=== PATIENT | female | born 1940 | race Caucasian/White ===

== ENCOUNTER 2017-05-05 08:30 | Emergency (ER) | payer MEDICARE, BC ==
[2017-05-05 08:59] LABS: URINE MUCUS NONE SEEN (Up to 25%)
--- NOTE | 2017-05-05 09:03 | ER PHYSICIAN DOCUMENTATION ---
Physician Documentation [facility] Name:Erica Sesay Age:76 yrs Sex:Female :1940 Arrival Date:05/05/2017 Time:08:30 Bed1 Private MD: David Denny Disposition: 05/05/17 08:54 Discharged to Home/Self Care. Impression: Bladder Infection (UTI). - Condition is Good. - Discharge Instructions: BLADDER INFECTION, Female (Adult). - Prescriptions for Macrobid 100 mg Oral Capsule - take 100 milligram by ORAL route every 12 hours for 14 days; 28 capsule. - Medical Reconciliation form form. - Follow up: Private Physician; When: 10 - 14 days; Reason: Recheck today's complaints, Continuance of care. - Problem is new. - Symptoms are unchanged. HPI: 05/05 08:59 This 76 yrs old Female presents to ER via Private Vehicle with complaints of be Urinary Frequency. 08:59 The patient presents with pelvic pain, that is located in/on the pelvis, urinary be symptoms, frequency, urgency, foul smelling urine. Onset: The symptoms/episode began/occurred yesterday, and became persistent today. Severity of symptoms: At their worst the symptoms were mild, this morning. The patient is sexually active. The patient has experienced similar episodes in the past, several times, with the last episode occurring 6 month(s) ago, and the symptoms today are exactly the same. Historical: - Allergies: Aspirin; - Home Meds: 1. losartan oral 2. Triamterene-Hydrochlorothiazid Oral 3. Simvastatin Oral 4. Potassium Chloride Oral 5. Centrum Silver oral 6. Citracal Oral 7. Zyrtec Oral - PMHx: Hypertension; CANCER, BREAST; - PSHx: MASTECTOMY; HYSTERECTOMY; Cholecysectomy; Appendectomy; - Tetanus: unknown will f/u with PCP. - Ebola Screening: : Patient denies exposure to infectious person. Patient denies travel to an Ebola-affected area in the 21 days before illness onset. . - Immunization history: Unable to Obtain. - Social history: Smoking status: Patient states was never smoker of tobacco. Patient/guardian denies using alcohol, marijuana. ROS: 09:02 Positive for urinary symptoms. be 09:02 All other systems are negative. Exam: 09:02 Constitutional: This is a well developed, well nourished patient who is awake, alert, be and in no acute distress. 09:02 Abdomen/GI: Palpation: abdomen is soft and non-tender. 09:02 Back: pain, is absent. 09:02 : Pelvic Exam: is not necessary for this patient, Bladder: is normal, non-distended. Vital Signs: 08:45 BP 156 / 61; Pulse 65; Resp 18; Temp 97.9; Pulse Ox 94% ; Weight 74.84 kg; Height [address] 4 in[address] (162.56 cm); Pain 0/10; 08:45 Body Mass Index 28.32 (74.84 kg, 162.56 cm) st MDM: 08:41 Patient medically screened. be 09:03 Differential diagnosis: urinary tract infection. Data reviewed: vital signs, nurses be notes, lab test result(s), urinalysis, bacteruria, pyuria, and as a result, I will discharge patient, administer antibiotics macrobid. 07 09:07 Order name: UA W/ MICRO -CULTURE IF IND EDMS 05/06 07:18 Order name: URINE CULTURE EDMS Dispensed Medications: No medications were administered Point of Care Testing: Urine Dip: 08:52 pH: 5.5; ; Specific [place]: 1.010; Ketones: Negative; Glucose: Negative; Protein: st Negative; Leukocytes: Positive; Nitrite: Positive (+) ; Blood: Non Hemolyzed Trace; Bilirubin: Negative ; Urobilinogen: Normal Signatures: Clari Quinones RN RN st Elliott, Brian, MD MD be
--- NOTE | 2017-05-05 09:03 | ER NURSING DOCUMENTATION ---
Nurse's Notes [facility] Name:Erica Sesay Age:76 yrs Sex:Female :1940 Arrival Date:05/05/2017 Time:08:30 Bed1 Private MD: Diagnosis:Bladder Infection (UTI) Presentation: 05/05 08:36 Acuity: TORI 4 st 08:42 Presenting complaint: Patient states: pt has had a strong smell to her urin and urinary st frequency for two days. she feels like she might have a UTI. Transition of care: patient was not received from another setting of care. 08:42 Method Of Arrival: Private Vehicle st Triage Assessment: 08:45 General: Appears in no apparent distress, Behavior is cooperative. Pain: Denies pain. st : Reports urgency urinary frequency strong smelling urin for two days. Historical: - Allergies: Aspirin; - Home Meds: 1. losartan oral 2. Triamterene-Hydrochlorothiazid Oral 3. Simvastatin Oral 4. Potassium Chloride Oral 5. Centrum Silver oral 6. Citracal Oral 7. Zyrtec Oral - PMHx: Hypertension; CANCER, BREAST; - PSHx: MASTECTOMY; HYSTERECTOMY; Cholecysectomy; Appendectomy; - Tetanus: unknown will f/u with PCP. - Ebola Screening: : Patient denies exposure to infectious person. Patient denies travel to an Ebola-affected area in the 21 days before illness onset. . - Immunization history: Unable to Obtain. - Social history: Smoking status: Patient states was never smoker of tobacco. Patient/guardian denies using alcohol, marijuana. Screenin:53 Infectious Disease Risk None. Abuse screen: Denies threats or abuse. Denies injuries st from another. pt feels safe at home. Nutritional screening: No deficits noted. Vital Signs: 08:45 BP 156 / 61; Pulse 65; Resp 18; Temp 97.9; Pulse Ox 94% ; Weight 74.84 kg; Height [address] 4 in. (162.56 cm); Pain 0/10; 08:45 Body Mass Index 28.32 (74.84 kg, 162.56 cm) st ED Course: 08:33 Patient arrived in ED. arc 08:36 Clari Quinones, RN is Primary Nurse. st 08:[address] 08:41 David Frances MD is Attending Physician. be 08:50 Urine collected. Clean catch specimen. st 08:54 Valuables Remains with patient. st Administered Medications: No medications were administered Point of Care Testing: Urine Dip: 08:52 pH: 5.5; ; Specific [place]: 1.010; Ketones: Negative; Glucose: Negative; Protein: st Negative; Leukocytes: Positive; Nitrite: Positive (+) ; Blood: Non Hemolyzed Trace; Bilirubin: Negative ; Urobilinogen: Normal Outcome: :54 Discharge ordered by . be 09:02 Discharged to home ambulatory. st 09:02 Condition: stable 09:02 Discharge instructions given to patient, Instructed on discharge instructions, follow up and referral plans. medication usage, Prescriptions given X 1. 09:03 [address] the ED[address] st Signatures: Clari Quinones, RN RN David Jorge MD MD be Chew, Amelia, Reg Reg arc
[2017-05-05 09:05] LABS: URINE APPEARANCE SLIGHTLY CLOUDY; URINE COLOR YELLOW
[2017-05-05 09:06] LABS: URINE BILIRUBIN NEGATIVE (NEGATIVE); URINE BLOOD TRACE (NEGATIVE); URINE GLUCOSE NORMAL (NEGATIVE); URINE KETONE NEGATIVE (NEGATIVE); URINE NITRITE POSITIVE (NEGATIVE); URINE PH 5.5 (5-7); URINE PROTEIN NEGATIVE (NEG - TRACE); URINE RBC 0-5/hpf (0-5/hpf); URINE SQUAMOUS EPITHELIAL CELL 0-5/hpf (<= 15/hpf); URINE UROBILINOGEN NORMAL (NEG-1mg/dL)
[2017-05-05 09:07] LABS: URINE LEUKOCYTE ESTERASE 500 WBC/uL (3+) (NEGATIVE)
== END 2017-05-05 09:03 | disposition home or self-care (01) ==
LOC: ER 08:30
DX: N39.0 Urinary tract infection, site not specified (principal); B96.20 Unspecified Escherichia coli [E. coli] as the cause of diseases classified elsewhere; I10 Essential (primary) hypertension; Z87.440 Personal history of urinary (tract) infections; Z79.899 Other long term (current) drug therapy
CPT/HCPCS: 81001; 87077; 87086; 87186; 99283